=== PATIENT | male | born 1990 | race American Indian/Alaskan Native ===

== ENCOUNTER 2020-02-11 18:41 | Emergency (ER) | payer SELFPAY ==
--- NOTE | 2020-02-11 21:16 | Event Note ---
ED Screening Note ED Screening Note: The patient was seen in triage for painful abdominal abscess with scant discharge Labs/imaging ordered to evaluate for a cause of this complaint. Vital signs reviewed, patient awake and alert in NAD. This initial assessment/diagnostic orders/clinical plan/treatment(s) is/are subject to change based on patients health status, clinical progression and re- assessment by fellow clinical providers in the ED. Further treatment and workup at subsequent clinical providers discretion. Patient/guardian urged not to elope from the ED as their condition may be serious if not clinically assessed and managed. Initial orders include:
[2020-02-11 21:18] VITALS: BP 130/76
[2020-02-11] MEDS ORDERED: LIDOCAINE-MPF (1%) 10 MG/1 ML VIAL 5 ML INFILTRATI ONE (22:44)
[2020-02-11] MEDS ORDERED: CLINDAMYCIN 300 MG CAP PO ONE (22:44)
[2020-02-11] MEDS ORDERED: AZITHROMYCIN 250 MG TAB PO ONE (22:44)
[2020-02-11 23:22] LABS: Bilirubin,Urine NEG (Negative); Blood,Urine NEG (Negative); Color,Urine Yellow (Yellow); Mucus,Urine 1+ /HPF; Protein,Urine <15 mg/dL mg/dL (Negative); Urobilinogen,Urine < 2.0 mg/dL (<2.0)
--- NOTE | 2020-02-12 00:11 | Emergency Department Report ---
ED General Adult HPI - General Chief complaint: Skin/Abscess/Foreign Body Stated complaint: BOIL ON STOMACH Time Seen by Provider: 02/11/20 21:14 Source: patient Mode of arrival: Ambulatory Limitations: No Limitations - History of Present Illness Initial comments: Patient is a 29-year-old -[place] male with no past medical history presents to the ED with complaint of acute onset persistent painful swollen erythematous maculopapular nonfluctuant rash in the anterior upper abdominal wall for the last 1 week, worse in the last 2 days. Patient also complains of dysuria, urinary frequency and urgency, penile discharge after having unprotected sexual intercourse with a new sexual partner about a week ago. Patient denies fever, chills, nausea, vomiting, abdominal pain, diarrhea, testicular pain, scrotal pain, low back pain or hematuria. MD Complaint: penile discharge; dysuria; painful erythematous rash on abdomen -: Sudden, week(s) (1) Location: abdomen, genitals Radiation: non-radiation Severity scale (0 -10): 5 Quality: burning, aching Consistency: constant Improves with: none Worsens with: none Associated Symptoms: denies other symptoms, rash (Erythematous maculopapular painful nonfluctuant rash in anterior upper abdominal wall). denies: confusion, chest pain, cough, diaphoresis, fever/chills, headaches, loss of appetite, malaise, nausea/vomiting, seizure, shortness of breath, syncope, weakness, other Treatments Prior to Arrival: none - Related Data Previous Rx's Medication Instructions Recorded Last Taken Type Doxycycline Hyclate 100 mg PO Q12H #20 tablet. 02/12/20 Unknown Rx Ibuprofen [Motrin] 800 mg PO Q8HR PRN #20 tablet 02/12/20 Unknown Rx Allergies Allergy/AdvReac Type Severity Reaction Status Date / Time Sulfa (Sulfonamide Allergy Unknown Verified 02/11/20 18:43 Antibiotics) ED Review of Systems ROS: Stated complaint: BOIL ON STOMACH Other details as noted in HPI Constitutional: denies: chills, fever Eyes: denies: eye pain, eye discharge, vision change ENT: denies: ear pain, throat pain Respiratory: denies: cough, shortness of breath, wheezing Cardiovascular: denies: chest pain, palpitations Endocrine: no symptoms reported Gastrointestinal: denies: abdominal pain, nausea, diarrhea Genitourinary: urgency, dysuria, frequency, discharge Musculoskeletal: denies: back pain, joint swelling, arthralgia Skin: rash, change in color, pruritus, other (Erythematous painful nonfluctuant maculopapular rash on anterior abdominal wall). denies: lesions Neurological: denies: headache, weakness, paresthesias Psychiatric: denies: anxiety, depression Hematological/Lymphatic: denies: easy bleeding, easy bruising ED Past Medical Hx - Past Medical History Previous Medical History?: No - Surgical History Past Surgical History?: No - Social History Smoking Status: Never Smoker Substance Use Type: None - Medications Home Medications: Home Medications Medication Instructions Recorded Confirmed Last Taken Type Doxycycline Hyclate 100 mg PO Q12H #20 tablet. 02/12/20 Unknown Rx Ibuprofen [Motrin] 800 mg PO Q8HR PRN #20 tablet 02/12/20 Unknown Rx ED Physical Exam - General Limitations: No Limitations General appearance: alert, in no apparent distress - Head Head exam: Present: atraumatic, normocephalic, normal inspection - Eye Eye exam: Present: normal appearance, PERRL, EOMI Pupils: Present: normal accommodation - ENT ENT exam: Present: normal exam, normal orophraynx, mucous membranes moist, TM's normal bilaterally, normal external ear exam - Neck Neck exam: Present: normal inspection, full ROM - Respiratory Respiratory exam: Present: normal lung sounds bilaterally. Absent: respiratory distress, wheezes, rales, rhonchi, chest wall tenderness, accessory muscle use, decreased breath sounds - Cardiovascular Cardiovascular Exam: Present: regular rate, normal rhythm, normal heart sounds. Absent: systolic murmur, diastolic murmur, rubs, gallop - GI/Abdominal GI/Abdominal exam: Present: soft, normal bowel sounds. Absent: tenderness, guarding, rebound, hyperactive bowel sounds, hypoactive bowel sounds - External exam: Present: other (Genital exam deferred) - Extremities Exam Extremities exam: Present: normal inspection, full ROM, normal capillary refill - Back Exam Back exam: Present: normal inspection, full ROM. Absent: tenderness, CVA tenderness (R), CVA tenderness (L), muscle spasm, paraspinal tenderness - Neurological Exam Neurological exam: Present: alert, oriented X3, CN II-XII intact, normal gait, reflexes normal - Psychiatric Psychiatric exam: Present: normal affect, normal mood - Skin Skin exam: Present: warm, dry, intact, normal color, rash (Erythematous maculopapular tender nonfluctuant rash in the anterior abdominal wall), erythema ED Course Vital Signs 02/11/20 21:17 Temperature 98.5 F Pulse Rate 74 Respiratory 18 Rate Blood Pressure 130/76 O2 Sat by Pulse 94 Oximetry ED Medical Decision Making - Medical Decision Making This is a 29-year-old male who presented to the ED with dysuria, urinary frequency and urgency and penile discharge for the last 2 days, having had an unprotected sexual intercourse with a new sexual partner a week ago. Patient also complains of painful erythematous maculopapular nonfluctuant rash on the anterior abdominal wall for 1 week. In the ED, patient is alert and oriented x3 and is not in distress. Patient was treated for pain and also given initial oral antibiotics and Rocephin injection for suspected gonorrhea. Patient was discharged home and advised to follow-up with [facility] for further STD testing including HIV. Patient was advised to inform his sexual partner to also be treated at the health department for the same. Patient was also discharged home with oral antibiotics doxycycline for both cellulitis and STD. Patient was advised to return to the ED immediately if symptoms get worse. - Differential Diagnosis STD; Cellulitis; Folliculitis; Abscess Critical care attestation.: If time is entered above; I have spent that time in minutes in the direct care of this critically ill patient, excluding procedure time. ED Disposition Clinical Impression: Abdominal wall cellulitis, STD (sexually transmitted disease) Disposition: TO HOME OR SELFCARE Is pt being admited?: No Does the pt Need Aspirin: No Condition: Stable Instructions: Cellulitis (ED), Folliculitis (ED), Sexually Transmitted Diseases (ED) Additional Instructions: Take medication with food, drink plenty of fluids and follow-up with your primary care physician in 5 to 7 days for reevaluation. Consider following up with a [facility] for further STD testing including HIV. Return to the ED immediately if symptoms get worse. Prescriptions: Doxycycline Hyclate 100 mg PO Q12H #20 tablet. Ibuprofen [Motrin] 800 mg PO Q8HR PRN #20 tablet PRN Reason: Pain , Severe (7-10) Referrals: [facility] [Outside] - 3-5 Days [facility] [Outside] - 3-5 Days Time of Disposition: 00:08 Print Language: SPANISH
== END 2020-02-12 00:28 | disposition home or self-care (01) ==
LOC: ED 18:41
DX: L03.311 Cellulitis of abdominal wall (principal); A63.8 Other specified predominantly sexually transmitted diseases; Z88.2 Allergy status to sulfonamides
CPT/HCPCS: 81001; 87591; 96372; 99283; J0696

== ENCOUNTER 2021-11-20 08:40 | Emergency (ER) | payer SELFPAY ==
--- NOTE | 2021-11-20 10:57 | Emergency Department Report ---
- General Chief Complaint: Sore Throat Stated Complaint: CONGESTION/SORE THROAT Time Seen by Provider: 11/20/21 09:03 Source: patient Mode of arrival: Ambulatory Limitations: No Limitations - History of Present Illness Initial Comments: Patient is a 31-year-old male presents emergency room with complaints of URI symptoms that began 4 days ago. He reports that his and children are also sick and some of them have strep throat. He has associated sore throat, congestion, occasional dry cough, chills, body aches. He denies any fever, vomiting, diarrhea, shortness of breath, chest pain, abdominal pain. Allergy to sulfa. - Related Data Previous Rx's Medication Instructions Recorded Last Taken Type Doxycycline Hyclate 100 mg PO Q12H #20 tablet. 02/12/20 Unknown Rx Ibuprofen [Motrin] 800 mg PO Q8HR PRN #20 tablet 02/12/20 Unknown Rx Benzonatate [Tessalon Perles] 100 mg PO Q8HR PRN #10 capsule 11/20/21 Unknown Rx Nystas/Diphen/Xyl Visc/Mylanta 30 ml MM Q4H PRN #300 ml 11/20/21 Unknown Rx [Magic Mouthwash] guaiFENesin ER [Mucinex ER] 600 mg PO Q12H #14 tablet.er 11/20/21 Unknown Rx Allergies Allergy/AdvReac Type Severity Reaction Status Date / Time Sulfa (Sulfonamide Allergy Unknown Verified 02/11/20 18:43 Antibiotics) ED Review of Systems ROS: Stated complaint: CONGESTION/SORE THROAT Other details as noted in HPI Comment: All other systems reviewed and negative ED Past Medical Hx - Past Medical History Previous Medical History?: No - Surgical History Past Surgical History?: No - Social History Smoking Status: Never Smoker Substance Use Type: None - Medications Home Medications: Home Medications Medication Instructions Recorded Confirmed Last Taken Type Doxycycline Hyclate 100 mg PO Q12H #20 tablet. 02/12/20 Unknown Rx Ibuprofen [Motrin] 800 mg PO Q8HR PRN #20 tablet 02/12/20 Unknown Rx Benzonatate [Tessalon Perles] 100 mg PO Q8HR PRN #10 capsule 11/20/21 Unknown Rx Nystas/Diphen/Xyl Visc/Mylanta 30 ml MM Q4H PRN #300 ml 11/20/21 Unknown Rx [Magic Mouthwash] guaiFENesin ER [Mucinex ER] 600 mg PO Q12H #14 tablet.er 11/20/21 Unknown Rx ED Physical Exam - General Limitations: No Limitations General appearance: alert, in no apparent distress - Head Head exam: Present: atraumatic, normocephalic - Eye Eye exam: Present: normal appearance - ENT ENT exam: Present: normal orophraynx, mucous membranes moist, TM's normal bilat erally, normal external ear exam - Respiratory Respiratory exam: Present: normal lung sounds bilaterally. Absent: respiratory distress, wheezes, rales, rhonchi, stridor, chest wall tenderness, accessory muscle use, decreased breath sounds, prolonged expiratory - Cardiovascular Cardiovascular Exam: Present: regular rate, normal rhythm, normal heart sounds. Absent: systolic murmur, diastolic murmur, rubs, gallop - Neurological Exam Neurological exam: Present: alert, oriented X3 - Psychiatric Psychiatric exam: Present: normal affect, normal mood - Skin Skin exam: Present: warm, dry, intact ED Course Vital Signs 11/20/21 11/20/21 08:56 11:06 Temperature 98.7 F Pulse Rate 68 Respiratory 16 15 Rate Blood Pressure 145/73 Blood Pressure 140/74 [Right] O2 Sat by Pulse 99 97 Oximetry ED Medical Decision Making - Medical Decision Making Patient is a 31-year-old male presents emergency room with complaints of URI symptoms that began 4 days ago. He reports that his and children are also sick and some of them have strep throat. He has associated sore throat, rachel estion, occasional dry cough, chills, body aches. He denies any fever, vomiting, diarrhea, shortness of breath, chest pain, abdominal pain. Allergy to sulfa. VSS. Normal oropharynx, no TMs and canals, breath sounds are clear bilaterally. advised pt Please take medication as prescribed as needed. Increase your fluid intake. Follow-up with your primary care doctor. Return to emergency room for any new or worsening symptoms. Recommend outpatient COVID- 19 testing if positive will need to self quarantine for 10 days from onset of symptoms. Critical care attestation.: If time is entered above; I have spent that time in minutes in the direct care of this critically ill patient, excluding procedure time. ED Disposition Clinical Impression: Upper respiratory infection Qualifiers: URI type: unspecified URI Qualified Code(s): J06.9 - Acute upper respiratory infection, unspecified Disposition: 01 HOME / SELF CARE / HOMELESS Is pt being admited?: No Does the pt Need Aspirin: No Condition: Stable Instructions: Viral Respiratory Infection Additional Instructions: Please take medication as prescribed as needed. Increase your fluid intake. Follow-up with your primary care doctor. Return to emergency room for any new or worsening symptoms. Recommend outpatient COVID-19 testing if positive will need to self quarantine for 10 days from onset of symptoms. Prescriptions: Nystas/Diphen/Xyl Visc/Mylanta [Magic Mouthwash] 30 ml MM Q4H PRN #300 ml PRN Reason: sore throat guaiFENesin ER [Mucinex ER] 600 mg PO Q12H #14 tablet.er Benzonatate [Tessalon Perles] 100 mg PO Q8HR PRN #10 capsule PRN Reason: cough Referrals: PRIMARY MD ANDREA [Primary Care Provider] - 3-5 Days FERNANDO BEE MD [Staff Physician] - 3-5 Days [facility] [Provider Group] - 3-5 Days Forms: Work/School Release Form(ED) Time of Disposition: 10:56 Print Language: [place]
[2021-11-20 11:06] VITALS: BP 140/74
== END 2021-11-20 11:09 | disposition home or self-care (01) ==
LOC: ED 08:40
DX: J06.9 Acute upper respiratory infection, unspecified (principal); R68.83 Chills (without fever); M79.10 Myalgia, unspecified site
CPT/HCPCS: 87116; 87400; 87430; 99283

== ENCOUNTER 2021-12-14 05:02 | Emergency (ER) | payer SELFPAY ==
[2021-12-14] MEDS ORDERED: AZITHROMYCIN 250 MG TAB PO STA (06:09)
[2021-12-14] MEDS ORDERED: metroNIDAZOLE 500 MG TAB PO STA (06:10)
[2021-12-14] MEDS ORDERED: LIDOCAINE-MPF (1%) 10 MG/1 ML VIAL 5 ML INFILTRATI ONE (06:10)
[2021-12-14] MEDS ORDERED: ONDANSETRON 4 MG ODT TAB PO ONE (06:11)
--- NOTE | 2021-12-14 06:15 | Emergency Department Report ---
ED Male HPI - General Chief complaint: Urogenital-Male Stated complaint: UTI Time Seen by Provider: 12/14/21 06:01 Source: patient Mode of arrival: Ambulatory Limitations: No Limitations - History of Present Illness Initial comments: Chief complaint: "I gave my girl trichomonas." HPI: This 31-year-old male with history of STI who presents with discomfort in his genital region. He presumed that he gave his girlfriend trichomonas. Girlfriend is monogamous. He is not monogamous. He denies discharge. He has mild dysuria. Denies rash or abdominal pain. Denies fever vomiting or back pain. His girlfriend was tested for STD. Her testing was positive for trichomonas. He presents to the emergency department for treatment for trichomonas. MD Complaint: other (Genital discomfort mild dysuria) -: Gradual, days(s) (Several days) Location: penis Radiation: none Severity: mild Quality: aching, burning Consistency: constant Worsens with: urination - Related Data Previous Rx's Medication Instructions Recorded Last Taken Type Doxycycline Hyclate 100 mg PO Q12H #20 tablet. 02/12/20 Unknown Rx Ibuprofen [Motrin] 800 mg PO Q8HR PRN #20 tablet 02/12/20 Unknown Rx Benzonatate [Tessalon Perles] 100 mg PO Q8HR PRN #10 capsule 11/20/21 Unknown Rx Nystas/Diphen/Xyl Visc/Mylanta 30 ml MM Q4H PRN #300 ml 11/20/21 Unknown Rx [Magic Mouthwash] guaiFENesin ER [Mucinex ER] 600 mg PO Q12H #14 tablet.er 11/20/21 Unknown Rx Allergies Allergy/AdvReac Type Severity Reaction Status Date / Time Sulfa (Sulfonamide Allergy Unknown Verified 12/14/21 05:51 Antibiotics) ED Review of Systems ROS: Stated complaint: UTI Other details as noted in HPI Constitutional: denies: fever, malaise Respiratory: denies: cough, shortness of breath Gastrointestinal: denies: abdominal pain, nausea, vomiting Genitourinary: dysuria Musculoskeletal: denies: back pain ED Past Medical Hx - Past Medical History Previous Medical History?: Yes Additional medical history: Sexually transmitted infection - Surgical History Past Surgical History?: No - Social History Smoking Status: Never Smoker Substance Use Type: None - Medications Home Medications: Home Medications Medication Instructions Recorded Confirmed Last Taken Type Doxycycline Hyclate 100 mg PO Q12H #20 tablet. 02/12/20 Unknown Rx Ibuprofen [Motrin] 800 mg PO Q8HR PRN #20 tablet 02/12/20 Unknown Rx Benzonatate [Tessalon Perles] 100 mg PO Q8HR PRN #10 capsule 11/20/21 Unknown Rx Nystas/Diphen/Xyl Visc/Mylanta 30 ml MM Q4H PRN #300 ml 11/20/21 Unknown Rx [Magic Mouthwash] guaiFENesin ER [Mucinex ER] 600 mg PO Q12H #14 tablet.er 11/20/21 Unknown Rx ED Physical Exam - General Limitations: No Limitations General appearance: alert, in no apparent distress - Head Head exam: Present: atraumatic, normocephalic - Respiratory Respiratory exam: Absent: respiratory distress - GI/Abdominal GI/Abdominal exam: Present: soft. Absent: distended, tenderness, guarding, rebound - Neurological Exam Neurological exam: Present: alert, oriented X3 - Psychiatric Psychiatric exam: Present: normal affect, normal mood - Skin Skin exam: Present: warm, dry, intact, normal color ED Course Vital Signs 12/14/21 05:53 Temperature 98.1 F Pulse Rate 58 L Respiratory 20 Rate Blood Pressure 118/74 O2 Sat by Pulse 96 Oximetry ED Medical Decision Making - Medical Decision Making Exposure to STD trichomonas with signs and symptoms of urethritis: Patient treated for presumed concomitant infections as recommended by the CDC as well as trichomonas with ceftriaxone azithromycin and metronidazole. Patient also received p.o. Zofran for anticipated nausea vomiting. Critical care attestation.: If time is entered above; I have spent that time in minutes in the direct care of this critically ill patient, excluding procedure time. ED Disposition Clinical Impression: Urethritis, Exposure to STD Disposition: HOME / SELF CARE / HOMELESS Is pt being admited?: No Does the pt Need Aspirin: No Condition: Stable Instructions: Safe Sex Referrals: FERNANDO BEE MD [Staff Physician] - 3-5 Days Forms: STI Treatment and Prevention
[2021-12-14 06:20] LABS: Bilirubin,Urine NEG (Negative); Blood,Urine NEG (Negative); Color,Urine Yellow (Yellow); Mucus,Urine 2+ /HPF; Protein,Urine <15 mg/dL mg/dL (Negative); Urobilinogen,Urine < 2.0 mg/dL (<2.0)
[2021-12-14 06:54] VITALS: BP 128/68
== END 2021-12-14 06:52 | disposition home or self-care (01) ==
LOC: ED 05:02
DX: N34.2 Other urethritis (principal); Z20.2 Contact with and (suspected) exposure to infections with a predominantly sexual mode of transmission; Z88.2 Allergy status to sulfonamides; Z79.899 Other long term (current) drug therapy
CPT/HCPCS: 81001; 96372; 99283; J0696; J3490; Q0162